=== PATIENT | female | born 2000 | race Hispanic/Latino ===

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

== ENCOUNTER 2022-06-12 12:01 | Emergency (ER) | payer MEDICAID ==
[~2022-06-12] VITALS: Ht 162.6 cm; Wt 68.0 kg
[~2022-06-12 12:01] MED LIST changes: -BUTORPHANOL TARTRATE 2 MG/ML IVP ONE; -FAMO-136 PO; -LACTATED RINGERS 1000ML IV ONE; -METO10TA41 PO
[2022-06-12 12:31] VITALS: BP 136/78
== END 2022-06-12 12:40 | disposition left against medical advice (07) ==
LOC: EDH 12:01
DX: O20.9 Hemorrhage in early pregnancy, unspecified (principal); Z53.21 Procedure and treatment not carried out due to patient leaving prior to being seen by health care provider
CPT/HCPCS: 99281